=== PATIENT | male | born 1965 | race Hispanic/Latino ===

== ENCOUNTER 2018-01-12 15:03 | Emergency (ER) | payer SELFPAY ==
[~2018-01-12] VITALS: Ht 162.6 cm; Wt 78.9 kg
[2018-01-12] MEDS ORDERED: SODIUM CHLORIDE 0.9% 1000ML 1,000 ML IV STA (15:05)
[2018-01-12] MEDS ORDERED: ONDANSETRON HCL INJ 2 MG/ML VIAL IV STA (15:05)
[2018-01-12] MEDS ORDERED: MORPHINE SULFATE INJ 4 MG/ML INJ IV STA (15:05)
[2018-01-12] MEDS ORDERED: ASPIRIN 81 MG CHEW TAB PO ONE (15:15)
[2018-01-12 15:39] LABS: BASOPHILS # (AUTO) 0.1 (0.0-0.1); BASOPHILS % 0.6 % (0.0-1.0); EOSINOPHILS % 0.2 % (0.0-6.0); HEMATOCRIT 43.2 % (38.2-49.6); HEMOGLOBIN 14.7 g/dL (14.0-18.0); LYMPHOCYTES % 7.9 % (18.0-39.1); MEAN CORPUSCULAR HEMOGLOBIN 32.6 pg (28-32); MEAN CORPUSCULAR VOLUME 95.8 fL (81-99); MONOCYTES # (AUTO) 0.7 (0.2-0.8); MONOCYTES % 5.2 % (4.4-11.3); NEUTROPHILS # (AUTO) 11.2 (2.1-6.9); NEUTROPHILS % 85.6 % (38.7-80.0); PLATELET COUNT 162 x10e3/uL (140-360); RED BLOOD COUNT 4.51 x10e6/uL (4.3-5.7); RED CELL DISTRIBUTION WIDTH 13.1 % (11.7-14.4)
--- NOTE | 2018-01-12 16:00 | Diagnostic Imaging Report ---
PROCEDURE: A single AP view of the chest. COMPARISON: None. INDICATIONS: LEFT SIDE ABDOMEN PAIN RADIATES TO BACKSIDE FINDINGS: Lines/tubes: None. Lungs: The lungs are well inflated. Mild bibasilar atelectasis. There is no evidence of pneumonia or pulmonary edema. Pleura: There is no pleural effusion or pneumothorax. Heart and mediastinum: The heart and the mediastinum are unremarkable. Bones: No acute bony abnormality. Upper abdomen: No free air under the diaphragm. IMPRESSION: No acute cardiopulmonary disease. Dictated by: Jules Haro M.D. on 01/12/2018 at 16:06 Electronically approved by: Jules Haro M.D. on 01/12/2018 at 16:06
[2018-01-12] MEDS ORDERED: SODIUM CHLORIDE 0.9% 1000ML 1,000 ML ONE (16:12)
[2018-01-12] MEDS ORDERED: SODIUM CHLORIDE 0.9% 1000ML 1,000 ML IV SCH (16:15)
[2018-01-12 16:34] LABS: ALANINE AMINOTRANSFERASE 36 IU/L (0-55); ALBUMIN 4.5 g/dL (3.5-5.0); ALBUMIN/GLOBULIN RATIO 1.5 (0.8-2.0); ALKALINE PHOSPHATASE 67 IU/L (40-150); BLOOD UREA NITROGEN 13 mg/dL (7-26); BUN/CREATININE RATIO 11 (6-25); CALCIUM 9.6 mg/dL (8.4-10.2); CARBON DIOXIDE 22 mmol/L (22-29); CHLORIDE 105 mmol/L (98-107); CREATINE KINASE 211 IU/L (30-200); CREATININE, SERUM 1.19 mg/dL (0.72-1.25); EST GLOMERULAR FILTRATION RATE > 60 ML/MIN (60-); GLUCOSE 139 mg/dL (74-118); LIPASE 12 U/L (8-78); SODIUM 140 mmol/L (136-145)
--- NOTE | 2018-01-12 17:11 | Diagnostic Imaging Report ---
PROCEDURE: CT ABDOMEN AND PELVIS WITHOUT CONTRAST TECHNIQUE: The abdomen and pelvis were scanned utilizing a multidetector helical scanner from the diaphragm to the lesser trochanter. No IV contrast was administered because of stone protocol. Coronal and sagittal multiplanar reformations were obtained. DLP: 362.91 mGy-cm COMPARISON: None. INDICATIONS: LEFT FLANK PAIN FINDINGS: ABSENCE OF INTRAVENOUS CONTRAST DECREASES SENSITIVITY FOR DETECTION OF FOCAL LESIONS AND VASCULAR PATHOLOGY. LOWER THORAX: Normal. HEPATOBILIARY: Diffuse hypoattenuation of the liver compatible with steatosis. No focal hepatic lesions. No biliary ductal dilatation. SPLEEN: No splenomegaly. PANCREAS: No focal masses or ductal dilatation. ADRENALS: No adrenal nodules. KIDNEYS/URETERS: Mild left hydroureteronephrosis with perinephric stranding secondary to a 0.3 cm stone at the ureterovesicular junction. A few calcifications in the left pelvis (series 3 image 123) likely represent vascular calcifications. Punctate nonobstructing calculus in the inferior right renal pole. No hydronephrosis. No suspicious renal contour abnormalities. PELVIC ORGANS/BLADDER: Unremarkable. PERITONEUM / RETROPERITONEUM: No free air or fluid. LYMPH NODES: No lymphadenopathy. VESSELS: Mild atherosclerotic calcifications. No abdominal aortic aneurysm. GI TRACT: No distention or wall thickening. BONES AND SOFT TISSUES: Unremarkable. IMPRESSION: 1. Left ureterovescular junction 0.3 cm stone results in mild hydroureteronephrosis and inflammatory perinephric stranding. 2. Non-obstructive right nephrolithiasis. 3. Hepatic steatosis. Dictated by: Jules Haro M.D. on 01/12/2018 at 17:17 Electronically approved by: Jules Haro M.D. on 01/12/2018 at 17:17
[2018-01-12 17:19] LABS: BILIRUBIN,URINE NEGATIVE (NEGATIVE); CLARITY,URINE CLEAR (CLEAR); COLOR,URINE YELLOW (YELLOW); KETONES,URINE NEGATIVE (NEGATIVE); LEUKOCYTE ESTERASE ,URINE NEGATIVE (NEGATIVE); NITRITE,URINE NEGATIVE (NEGATIVE); PROTEIN,URINE DIPSTICK NEGATIVE (NEGATIVE); URINE UROBILINOGEN 0.2 mg/dL (0.2 - 1)
[2018-01-12 17:26] LABS: BACTERIA,URINE RARE /HPF; MUCUS,URINE FEW (RARE); RBC,URINE >50 /HPF (0-5)
[2018-01-12] MEDS ORDERED: FLOMAX0.4 MG PO ×2 (17:26→17:32)
[2018-01-12] MEDS ORDERED: ULTRAM50 MG PO (17:27)
[2018-01-12] MEDS ORDERED: KEFLEX500 MG PO (17:44)
== END 2018-01-12 18:13 | disposition home or self-care (01) ==
LOC: ER 15:03
DX: R30.0 Dysuria (principal); R10.32 Left lower quadrant pain; N20.0 Calculus of kidney; N39.0 Urinary tract infection, site not specified
CPT/HCPCS: 36415; 71045; 74176; 80053; 81001; 82550; 82553; 83690; 84484; 85025; 93005; 99284; J2270; J2405; J7030